=== PATIENT | male | born 1975 | race Caucasian/White ===

== ENCOUNTER 2020-07-11 18:49 | Emergency (ER) | payer MEDICAID ==
[~2020-07-11] VITALS: Ht 193 cm; Wt 117.9 kg
[2020-07-11 19:03] VITALS: BP 127/96
[2020-07-11] MEDS ORDERED: KETOROLAC TROMETH 60MG/2ML VIAL IM ONE (20:00)
== END 2020-07-11 20:56 | disposition home or self-care (01) ==
LOC: ER 18:49
DX: S33.5XXA Sprain of ligaments of lumbar spine, initial encounter (principal); M54.16 Radiculopathy, lumbar region; J45.909 Unspecified asthma, uncomplicated; X58.XXXA Exposure to other specified factors, initial encounter; Y93.89 Activity, other specified; Y92.89 Other specified places as the place of occurrence of the external cause; Y99.8 Other external cause status
CPT/HCPCS: 96372; 99283; J1885